=== PATIENT | male | born 1955 | race Caucasian/White ===

== ENCOUNTER 2018-02-24 19:30 | Inpatient (IN) | payer BC ==
[~2018-02-24] VITALS: Ht 167.6 cm; Wt 90.5 kg
[~2018-02-24 19:30] MED LIST: ADVIL200 M3 PO; OXAYDO5 MG PO; PERCOCET 5/31 TABLET PO; PROTONIX20 MG PO; TYLENOL EXTRA500 MG PO; ZOFRAN4 MG PO
[2018-02-24 20:17] LABS: HEMATOCRIT 48.2 % (38.0-50.0); HEMOGLOBIN 16.5 G/DL (12.5-16.6); MCH 30.9 PG (29.0-34.0); MCHC 34.2 G/DL (30.0-36.0); MCV 90.3 FL (86-99); PLATELET COUNT 178 K/uL (156-360); RBC DIS.WIDTH-CV 12.9 % (11.8-14.6); RBC DIS.WIDTH-SD 42.3 % (39-53); RED BLOOD COUNT 5.34 M/uL (4.00-5.50); WHITE BLOOD COUNT 9.8 K/uL (4.1-10.2)
[2018-02-24 20:29] LABS: ALBUMIN 4.3 g/dL (3.2-4.8); CHLORIDE 106 mEq/L (99-109); POTASSIUM 4.6 mEq/L (3.7-5.4); SODIUM 140 mEq/L (136-147)
[2018-02-24 20:30] LABS: APPEARANCE CLEAR ((CLEAR)); BILIRUBIN NEGATIVE; BLOOD NEGATIVE; COLOR YELLOW ((YELLOW)); GLUCOSE (STRIP) NEGATIVE; KETONES 5; LEUKOCYTES NEGATIVE; NITRITE NEGATIVE; PROTEIN (STRIP) 30; UCUL ADDED? NO
[2018-02-24 20:31] LABS: GLUCOSE 122 mg/dL (70-99); TOTAL PROTEIN 7.5 g/dL (6.4-8.3)
[2018-02-24 20:33] LABS: TOTAL BILIRUBIN 0.4 mg/dL (0.0-1.0)
[2018-02-24 20:35] LABS: ALKALINE PHOSPHATASE 72 IU/L (3-129); CREATININE 1.2 mg/dL (0.6-1.3); GFR ESTIMATE (CALCULATED) > 59 mL/min/ (58.99-99999)
[2018-02-24 20:36] LABS: UREA NITROGEN (BUN) 19 mg/dL (9-23)
[2018-02-24 20:37] LABS: AST (GOT) 20 IU/L (2-34)
[2018-02-24 20:38] LABS: ALT (GPT) 17 IU/L (3-49); LIPASE 16 U/L (1.0-51.0)
[2018-02-24] MEDS ORDERED: ADULT ASPIRIN R81 MG PO (21:57)
[2018-02-24] MEDS ORDERED: PROTONIX40 MG PO (21:57)
[2018-02-24] MEDS ORDERED: CYANOCOBALAM1000 MCG PO (21:57)
[2018-02-25 01:22] VITALS: BP 145/86
[2018-02-25 03:42] VITALS: BP 150/92
[2018-02-25 08:11] VITALS: BP 135/82
[2018-02-25 16:17] VITALS: BP 138/88
[2018-02-25 23:29] VITALS: BP 141/81
[2018-02-26 08:43] VITALS: BP 126/79
[2018-02-26 15:18] VITALS: BP 139/88
[2018-02-26 23:38] VITALS: BP 131/72
[2018-02-27 08:18] VITALS: BP 142/72
[2018-02-27 15:45] VITALS: BP 133/72
[2018-02-28 00:02] VITALS: BP 113/76
[2018-02-28 08:09] VITALS: BP 129/81
[2018-02-28 16:27] VITALS: BP 135/75
== END 2018-02-28 17:23 | disposition home or self-care (01) | DRG 390 ==
LOC: EME 19:30 → EDOF 22:52 → 3EAST 22:52 → ENRESERV 23:08 → 3EAST 02-25 01:19
PROVIDERS: Physician Assistant
DX: K56.609 Unspecified intestinal obstruction, unspecified as to partial versus complete obstruction (principal); Z90.49 Acquired absence of other specified parts of digestive tract
CPT/HCPCS: 74018; 74019; 74177; 80053; 81003; 83690; 85027; 99281; 99285; J1170; J2405; J3010; J7030; S0028

== ENCOUNTER 2018-05-05 06:11 | Inpatient (IN) | payer BC ==
[~2018-05-05] VITALS: Ht 167.6 cm; Wt 96.9 kg
[~2018-05-05 06:11] MED LIST changes: +ADULT ASPIRIN R81 MG PO; +PROTONIX40 MG PO; +VITAMIN B-12500 MC5 SL
[2018-05-05 06:35] LABS: APPEARANCE CLEAR ((CLEAR)); BILIRUBIN NEGATIVE; BLOOD NEGATIVE; COLOR YELLOW ((YELLOW)); GLUCOSE (STRIP) NEGATIVE; KETONES NEGATIVE; LEUKOCYTES NEGATIVE; NITRITE NEGATIVE; PROTEIN (STRIP) NEGATIVE; SPECIFIC GRAVITY 1.027 (1.000-1.030); UCUL ADDED? NO; UROBILINOGEN 0.2 MG/DL (0.2-1.0)
[2018-05-05 07:00] LABS: HEMATOCRIT 48.2 % (38.0-50.0); HEMOGLOBIN 16.5 G/DL (12.5-16.6); MCH 30.7 PG (29.0-34.0); MCHC 34.2 G/DL (30.0-36.0); MCV 89.8 FL (86-99); PLATELET COUNT 158 K/uL (156-360); RBC DIS.WIDTH-SD 42.4 % (39-53); RED BLOOD COUNT 5.37 M/uL (4.00-5.50); WHITE BLOOD COUNT 7.3 K/uL (4.1-10.2)
[2018-05-05 07:05] LABS: ALBUMIN 4.4 g/dL (3.2-4.8)
[2018-05-05 07:06] LABS: CHLORIDE 107 mEq/L (99-109); POTASSIUM 4.7 mEq/L (3.7-5.4); SODIUM 139 mEq/L (136-147)
[2018-05-05 07:08] LABS: GLUCOSE 117 mg/dL (70-99); TOTAL PROTEIN 7.2 g/dL (6.4-8.3)
[2018-05-05 07:09] LABS: TROP-I INTERPRETATION NEGATIVE; TROPONIN-I < 0.01 ng/mL (0.0-0.30)
[2018-05-05 07:10] LABS: TOTAL BILIRUBIN 0.6 mg/dL (0.0-1.0)
[2018-05-05 07:11] LABS: ALKALINE PHOSPHATASE 65 IU/L (3-129)
[2018-05-05 07:12] LABS: GFR ESTIMATE (CALCULATED) > 59 mL/min/ (58.99-99999)
[2018-05-05 07:13] LABS: AST (GOT) 26 IU/L (2-34); UREA NITROGEN (BUN) 18 mg/dL (9-23)
[2018-05-05 07:14] LABS: ALT (GPT) 20 IU/L (3-49)
[2018-05-05 09:06] VITALS: BP 142/80
[2018-05-05 10:46] VITALS: BP 127/77
[2018-05-05 15:00] VITALS: BP 158/91
[2018-05-05 16:26] VITALS: BP 135/76
[2018-05-05 19:42] VITALS: BP 139/79
[2018-05-06] VITALS (7 sets, daily range): BP systolic 119–152; BP diastolic 63–89
[2018-05-06 05:47] LABS: HEMATOCRIT 47.3 % (38.0-50.0); HEMOGLOBIN 15.6 G/DL (12.5-16.6); MCH 30.4 PG (29.0-34.0); PLATELET COUNT 141 K/uL (156-360); RBC DIS.WIDTH-CV 12.9 % (11.8-14.6); RBC DIS.WIDTH-SD 43.2 % (39-53); RED BLOOD COUNT 5.14 M/uL (4.00-5.50); WHITE BLOOD COUNT 6.2 K/uL (4.1-10.2)
[2018-05-06 06:12] LABS: CHLORIDE 105 MEQ/L (99-109); GFR ESTIMATE (CALCULATED) > 59 mL/min/ (58.99-99999); POTASSIUM 4.5 MEQ/L (3.7-5.4); SODIUM 140 MEQ/L (136-147); UREA NITROGEN (BUN) 12 mg/dL (9-23)
[2018-05-06 06:26] LABS: GLUCOSE 83 mg/dL (70-99)
[2018-05-07 04:04] VITALS: BP 126/57
[2018-05-07 05:32] LABS: BASOPHIL (%) 0.4 % (0-1); EOSINOPHIL (%) 1.8 % (0-5); EOSINOPHIL COUNT 0.1 K/uL (0-0.3); HEMATOCRIT 45.7 % (38.0-50.0); HEMOGLOBIN 15.2 G/DL (12.5-16.6); IMMATURE GRANULOCYTE (%) 0.2 % (0.0-0.7); LYMPHOCYTE COUNT 1.7 K/uL (1.0-2.8); MCH 30.3 PG (29.0-34.0); MCHC 33.3 G/DL (30.0-36.0); MONOCYTE (%) 7.9 % (3-12); MONOCYTE COUNT 0.4 K/uL (0-0.8); NEUTROPHIL (%) 58.7 % (45-76); NEUTROPHIL COUNT 3.3 K/uL (1.8-6.4); PLATELET COUNT 144 K/uL (156-360); RBC DIS.WIDTH-CV 12.6 % (11.8-14.6); RBC DIS.WIDTH-SD 41.8 % (39-53); RED BLOOD COUNT 5.02 M/uL (4.00-5.50); WHITE BLOOD COUNT 5.5 K/uL (4.1-10.2)
[2018-05-07 05:56] LABS: CHLORIDE 107 MEQ/L (99-109); CREATININE 0.9 MG/DL (0.6-1.3); GFR ESTIMATE (CALCULATED) > 59 mL/min/ (58.99-99999); GLUCOSE 92 mg/dL (70-99); POTASSIUM 3.8 MEQ/L (3.7-5.4); SODIUM 141 MEQ/L (136-147); UREA NITROGEN (BUN) 9 mg/dL (9-23)
[2018-05-07 07:55] VITALS: BP 128/75
[2018-05-07 11:32] VITALS: BP 124/74
== END 2018-05-07 13:15 | disposition home or self-care (01) | DRG 389 ==
LOC: EME 06:11 → 5EAST 07:42 → EDOF 07:42 → 5EAST 09:03
PROVIDERS: Emergency Medicine; Internal Medicine; Physician Assistant
DX: K56.51 Intestinal adhesions [bands], with partial obstruction (principal); R18.8 Other ascites; K21.9 Gastro-esophageal reflux disease without esophagitis; Z79.82 Long term (current) use of aspirin; Z90.49 Acquired absence of other specified parts of digestive tract; Z88.7 Allergy status to serum and vaccine
CPT/HCPCS: 71045; 74176; 80048; 80053; 81003; 83605; 84484; 85025; 85027; 93005; 99281; 99285; C9113; J1650; J2405; J3010; J7030